=== PATIENT | male | born 1955 | race African-American/Black ===

== ENCOUNTER 2017-02-14 20:03 | Inpatient (IN) | payer MEDICARE ==
[2017-02-14] MEDS ORDERED: NITROGLYCERIN/D5W 50 MG/250 ML RTUINJ IV PRN (20:41)
[2017-02-14] MEDS ORDERED: FUROSEMIDE INJ/PF 40 MG/4 ML SDV IV ONE (20:42)
[2017-02-14 20:43] LABS: ABSOLUTE BASOPHILS # (AUTO) 0.1 10^3/uL (0.0-0.2); ABSOLUTE EOSINOPHILS # (AUTO) 0.3 10^3/uL (0.0-0.6); ABSOLUTE LYMPHOCYTES (AUTO) 2.3 10^3/uL (0.5-4.7); ABSOLUTE MONOCYTES (AUTO) 0.6 10^3/uL (0.1-1.4); ABSOLUTE NEUT (AUTO) 3.6 10^3/uL (1.7-8.2); BASOPHILS % (AUTO) 1.3 % (0-2); EOSINOPHILS % (AUTO) 4.8 % (0-6); HEMATOCRIT 40.4 % (37.9-51.0); HEMOGLOBIN 13.3 g/dL (13.5-17.0); HGB HCT DIFFERENCE -0.5; LYMPHOCYTES % (AUTO) 33.5 % (13-45); MEAN CORPUSCULAR HEMOGLOBIN 23.7 pg (27.0-33.4); MEAN CORPUSCULAR HGB CONC 32.9 g/dL (32.0-36.0); MEAN CORPUSCULAR VOLUME 72 fl (80-97); MONOCYTES % (AUTO) 8.3 % (3-13); RED CELL DISTRIBUTION WIDTH 16.4 % (11.5-14.0); SEGMENTED NEUTROPHILS % (AUTO) 52.1 % (42-78); WHITE BLOOD COUNT 6.9 10^3/uL (4.0-10.5)
--- NOTE | 2017-02-14 20:46 | ER Document Report ---
ED General - General Chief Complaint: Breathing Difficulty Stated Complaint: DIFFICULTY BREATHING Time Seen by Provider: 02/14/17 20:17 Notes: Patient is a 61-year-old male with a past medical history of hypertension, hyperlipidemia, congestive heart failure, who presents with progressively worsening shortness of breath and exertional dyspnea. Patient is a very poor historian, has difficulty relating actually how long his symptoms have been worsening. His grandson at the bedside states that he has had intermittent symptoms similar to today the past 1 month but it got worse today prompting him to request evaluation in the emergency department. Patient reports that he has required hospitalization in the past on BiPAP due to his congestive heart failure denies any recent hospitalizations for that reason. He denies any chest pain, fever, cough, sputum production, nausea or vomiting. Notes that exertion worsens his shortness of breath and rest a somewhat improve it. He does note positive orthopnea. He has noted increased lower extremity swelling that is equal. He denies any medication changes or noncompliance of medications. He does admit to some dietary indiscretions and occasionally smoking. He has not seen his primary doctor regarding today's concerns. TRAVEL OUTSIDE OF THE [place] IN LAST 30 DAYS: No - Related Data Allergies/Adverse Reactions: No Known Allergies Allergy (Unverified 02/14/17 20:43) Home Medications: Current Home Medications Finasteride [Proscar 5 mg Tablet] 5 mg PO DAILY 02/14/17 [History] Furosemide [Lasix 40 mg Tablet] 40 mg PO QAM 02/14/17 [History] Labetalol HCl 300 mg PO DAILY 02/14/17 [History] Pravastatin Sodium 40 mg PO DAILY 02/14/17 [History] Past Medical History - General Information source: Patient - Social History Smoking Status: Current Some Day Smoker Frequency of alcohol use: None Drug Abuse: None Lives with: Family Family History: Reviewed & Not Pertinent Review of Systems - Review of Systems Notes: Constitutional: Negative for fever. HENT: Negative for sore throat. Eyes: Negative for visual changes. Cardiovascular: Negative for chest pain. Respiratory: Positive for shortness of breath. Gastrointestinal: Negative for abdominal pain, vomiting or diarrhea. Genitourinary: Negative for dysuria. Musculoskeletal: Negative for back pain. Skin: Negative for rash. Neurological: Negative for headaches, weakness or numbness. 10 point ROS negative except as marked above and in HPI. Physical Exam - Vital signs Vitals: Resp Pulse Ox 28 H 100 02/14/17 20:11 02/14/17 20:11 Interpretation: Tachypneic Notes: PHYSICAL EXAMINATION: GENERAL: Moderate respiratory distress, unable to speak in complete sentences. HEAD: Atraumatic, normocephalic. EYES: Pupils equal round and reactive to light, extraocular movements intact, sclera anicteric, conjunctiva are normal. ENT: nares patent, oropharynx clear without exudates. Moderately dry mucous membranes. NECK: Normal range of motion, supple without lymphadenopathy LUNGS: Diminished at the bases bilaterally. Scattered faint rhonchi. Tachypneic with respirations between 30 and 32 breaths per minute. Unable to speak in greater than 2-3 word sentences HEART: Regular rate and rhythm without murmurs ABDOMEN: Soft, nontender, normoactive bowel sounds. No guarding, no rebound. No masses appreciated. EXTREMITIES: Normal range of motion, 3+ pitting edema that is equal and symmetric in the bilateral lower extremities NEUROLOGICAL: No focal neurological deficits. Moves all extremities spontaneously and on command. PSYCH: Normal mood, normal affect. SKIN: Warm, Dry, normal turgor, no rashes or lesions noted. Course - Re-evaluation Re-evalutation: 02/14/17 20:30 Patient presents with moderate respiratory distress breathing at 30-32 times a minute although without hypoxia and maintaining oxygen saturations of 96-99% on room air. Initial blood pressures are elevated at 188 on 124. Patient is unable to speak in more than 2-3 word sentences without gasping for breath. He has 3+ pitting edema in the bilateral lower extremities. Bedside pulmonary ultrasound does show a moderate amount of B-lines, echocardiogram does not show any evidence of pericardial effusion but does show global hypokinesis. Patient has been taking furosemide 40 mg twice daily. Given patient's work difficulty breathing, will place on BiPAP from beginning nitroglycerin infusion, provide IV Lasix, and continue to monitor very closely. 02/14/17 21:26 Patient's work of breathing is much improved on BiPAP blood pressure is trending appropriately on nitroglycerin infusion currently at 50 mg/min down to 163 on 114. However, patient is becoming somewhat more somnolent, and will obtain a venous blood gas to evaluate for the possibility of CO2 retention. Laboratories demonstrate a markedly elevated proBNP, normal troponin, mild hypernatremia. Will continue to monitor closely. 02/14/17 22:22 Patient has had improved work of breathing on BiPAP, although his pressure has increased up to 199/135 although patient is somewhat agitated and continues to resist care. He does continue to agree to stay in the hospital and family has assisted in forcing that patient will remain in the hospital. Will give a very low dose of haloperidol to help calm the patient as he does remain somewhat agitated. 02/14/17 22:41 I have discussed this case with Dr. Chen who is agreed for admission. On 70 mg/min nitroglycerin patient's blood pressure is improved down to 156 and 106. - Vital Signs Vital signs: Temp Pulse Resp BP Pulse Ox 28 H 180/122 H 100 02/14/17 20:42 02/14/17 20:12 02/14/17 20:42 - Laboratory Result Diagrams: 02/14/17 20:15 02/14/17 20:15 Laboratory results interpreted by me: 02/14/17 02/14/17 02/14/17 20:15 20:15 20:15 RBC 5.60 H Hgb 13.3 L MCV 72 L MCH 23.7 L RDW 16.4 H Sodium 147.6 H Total Bilirubin 1.7 H Direct Bilirubin 0.6 H NT-Pro-B Natriuret Pep 5170 H - Diagnostic Test Radiology reviewed: Image reviewed, Reports reviewed Radiology results interpreted by me: 02/14/17 21:27 Chest x-ray: Cardiomegaly, pulmonary vascular congestion - EKG Interpretation by Me Additional EKG results interpreted by me: 02/14/17 22:26 Sinus rhythm. Rate 98. LVH. QTC is 491. Critical Care Note - Critical Care Note Total time excluding time spent on procedures (mins): 37 Comments: Critical care time spent obtaining history from patient or surrogate, discussions with consultants, development of treatment plan with patient or surrogate, evaluation of patient's response to treatment, examination of patient , ordering and performing treatments and interventions, ordering and review of laboratory studies, re-evaluation of patient's condition, ordering and review of radiographic studies and review of old charts Discharge - Discharge Clinical Impression: Respiratory distress Pulmonary edema Qualifiers: Chronicity: acute Qualified Code(s): J81.0 - Acute pulmonary edema CHF exacerbation Qualifiers: Congestive heart failure type: unspecified congestive heart failure type Qualified Code(s): I50.9 - Heart failure, unspecified Condition: Fair Disposition: ADMITTED INPATIENT [facility] Admitted: [facility]
[2017-02-14 20:52] LABS: ALANINE AMINOTRANSFERASE 28 U/L (21-72); ALBUMIN 3.9 g/dL (3.5-5.0); ALKALINE PHOSPHATASE 82 U/L (38-126); ANION GAP 14 (5-19); ASPARTATE AMINO TRANSFERASE 23 U/L (17-59); BILIRUBIN,DIRECT 0.6 mg/dL (0.0-0.4); BILIRUBIN,TOTAL 1.7 mg/dL (0.2-1.3); BLOOD UREA NITROGEN 19 mg/dL (7-20); CALCIUM 9.3 mg/dL (8.4-10.2); CARBON DIOXIDE 28 mmol/L (22-30); CHLORIDE 106 mmol/L (98-107); GLUCOSE 83 mg/dL (75-110); POTASSIUM 3.8 mmol/L (3.6-5.0); SODIUM 147.6 mmol/L (137-145); TOTAL PROTEIN 7.1 g/dL (6.3-8.2)
[2017-02-14 21:11] LABS: TROPONIN I < 0.012 ng/mL
--- NOTE | 2017-02-14 22:08 | RADIOLOGY REPORT (SQ) ---
EXAM DESCRIPTION: CHEST SINGLE VIEW COMPLETED DATE/TIME: 02/14/2017 8:58 pm REASON FOR STUDY: sob COMPARISON: None. NUMBER OF VIEWS: One view. TECHNIQUE: Single frontal radiographic view of the chest acquired. LIMITATIONS: None. FINDINGS: LUNGS AND PLEURA: No opacities, masses or pneumothorax. No pleural effusion. MEDIASTINUM AND HILAR STRUCTURES: No masses. Contour normal. HEART AND VASCULAR STRUCTURES: Heart enlarged without failure. Normal vasculature. BONES: No acute findings. HARDWARE: None in the chest. OTHER: No other significant finding. IMPRESSION: HEART ENLARGED WITHOUT FAILURE. NO OTHER SIGNIFICANT RADIOGRAPHIC FINDING IN THE CHEST. TECHNICAL DOCUMENTATION: JOB ID: [id number] [place]-72 2010 [employer]- All Rights Reserved
[2017-02-14 22:16] LABS: VENOUS BLOOD BASE EXCESS 1.8 mmol/L; VENOUS BLOOD HCO3 27.9 mmol/L (20-32); VENOUS BLOOD PCO2 50.1 mmHg (35-63); VENOUS BLOOD PH 7.36 (7.30-7.42)
[2017-02-14] MEDS ORDERED: HALOPERIDOL LACTATE INJ 5 MG/1 ML VIAL IV ONE (22:24)
[2017-02-14] MEDS ORDERED: ACETAMINOPHEN 325 MG TABLET PO PRN (22:33)
[2017-02-14] MEDS ORDERED: MAG HYDROX/AL HYDROX/SIMETH SUSP 30 ML UDCUP PO PRN (22:33)
[2017-02-14] MEDS ORDERED: ENALAPRILAT DIHYDRATE INJ/PF 1.25 MG/1 ML SDV IV PRN (22:33)
[2017-02-14] MEDS ORDERED: MAGNESIUM HYDROXIDE SUSP 30 ML UDCUP PO PRN (22:33)
[2017-02-14] MEDS ORDERED: SPIRONOLACTONE 25 MG TABLET PO ONE (23:15)
[2017-02-15] MEDS ORDERED: LORAZEPAM INJ 2 MG/1 ML VIAL IV PRN (01:11)
[2017-02-15] MEDS: NITROGLYCERIN 2% OINTMENT 1 GM PACKET TP SCH ×4 (01:18→18:13)
[2017-02-15] MEDS: POTASSI CL 20 MEQ/50 ML RIDER 20 MEQ/50 ML RTUPB IV SCH ×2 (02:54→04:46)
[2017-02-15] MEDS: HEPARIN SOD (PORCINE) 5,000 UNIT/ML 1 ML SYRINGE SUBCUT SCH ×3 (06:33→21:29)
[2017-02-15] MEDS ORDERED: HALOPERIDOL LACTATE INJ 5 MG/1 ML VIAL IV PRN (06:42)
--- NOTE | 2017-02-15 06:42 | PDOC H&P ---
History of Present Illness Admission Date/PCP: 02/14/17 22:56 Patient complains of: Shortness of breath History of Present Illness: CURTIS HOPKINS is a 61 year old male with a past medical history of hypertension, congestive heart failure, dyslipidemia, tobacco, recreational drugs, noncompliance and dementia. He presents with progressive shortness of breath and edema over the last month. He is a poor historian and unable to provide history his daughter is at bedside stating he does not take his medication, accept dementia diagnosis or follow dietary restrictions. In the emergency room he found to have hypertensive emergency of greater than 200 systolic he started on BiPAP, IV nitroglycerin and Lasix. Later patient becomes severely delirious requiring Haldol sedation. He is referred to the hospitalist for admission. Past Medical History Cardiac Medical History: Reports: Congestive Heart Failure, Hyperlipidema, Hypertension Social History Information Source: Relative Lives with: Family Smoking Status: Current Some Day Smoker Cigars Per Day: 3 Frequency of Alcohol Use: None Hx Recreational Drug Use: No Hx Prescription Drug Abuse: No Family History Family History: CAD, Hypertension, Other - Dementia Parental Family History Reviewed: Yes Children Family History Reviewed: Yes Sibling(s) Family History Reviewed.: Yes Medication/Allergy Home Medications: Finasteride [Proscar 5 mg Tablet] 5 mg PO DAILY 02/14/17 Furosemide [Lasix 40 mg Tablet] 40 mg PO QAM 02/14/17 Labetalol HCl 300 mg PO DAILY 02/14/17 Pravastatin Sodium 40 mg PO DAILY 02/14/17 Allergies/Adverse Reactions: No Known Allergies Allergy (Unverified 02/14/17 20:43) Review of Systems ROS unobtainable: Due to mental status Physical Exam Vital Signs: Temp Pulse Resp BP Pulse Ox 98.5 F 63 20 137/95 H 100 02/15/17 03:14 02/15/17 03:14 02/15/17 04:00 02/15/17 03:14 02/15/17 04:00 Intake & Output 02/13/17 02/14/17 02/15/17 11:59 11:59 11:59 Intake Total 600 Output Total 1600 Balance -1000 Weight 98 kg General appearance: PRESENT: severe distress. ABSENT: cooperative Head exam: PRESENT: atraumatic, normocephalic Eye exam: PRESENT: conjunctiva pink, EOMI, PERRLA. ABSENT: scleral icterus Ear exam: PRESENT: normal external ear exam Mouth exam: PRESENT: moist, tongue midline Neck exam: PRESENT: JVD. ABSENT: carotid bruit Respiratory exam: PRESENT: accessory muscle use, crackles, decreased breath sounds, prolonged expiratory phas, retraction, symmetrical, tachypnea Cardiovascular exam: PRESENT: gallop, RRR. ABSENT: diastolic murmur, rubs, systolic murmur Pulses: PRESENT: normal dorsalis pedis pul Vascular exam: PRESENT: normal capillary refill GI/Abdominal exam: PRESENT: normal bowel sounds, soft. ABSENT: distended, guarding, mass, organolmegaly, rebound, tenderness Rectal exam: PRESENT: deferred Extremities exam: PRESENT: +2 edema Neurological exam: PRESENT: alert, awake, oriented to person, CN II-XII grossly intact Psychiatric exam: PRESENT: agitated Skin exam: PRESENT: dry, intact, warm. ABSENT: cyanosis, rash Results Impressions: Chest X-Ray 02/14/17 20:34 IMPRESSION: HEART ENLARGED WITHOUT FAILURE. NO OTHER SIGNIFICANT RADIOGRAPHIC FINDING IN THE CHEST. Assessment & Plan - Diagnosis (1) Hypertensive emergency Is this a current diagnosis for this admission?: Yes Plan: IMCU admission, titrate IV nitroglycerin to transdermal, add p.o. Aldactone, Vasotec, Lasix and hydralazine (2) History of substance abuse Is this a current diagnosis for this admission?: Yes Plan: Avoid beta-rocco pending urine drug screen. (3) CHF exacerbation Qualifiers: Congestive heart failure type: unspecified congestive heart failure type Qualified Code(s): I50.9 - Heart failure, unspecified Is this a current diagnosis for this admission?: Yes Plan: Unknown ejection fraction echocardiogram ordered. Continue BiPAP and optimization of blood pressure follow-up urine drug screen, cardiac enzyme, CBC and chemistry. (4) Delirium Is this a current diagnosis for this admission?: Yes Plan: History of dementia likely vascular complicated by the above. As needed Haldol (5) Tobacco dependency Is this a current diagnosis for this admission?: Yes Plan: Tobacco Dependence patient received tobacco cessation counseling and offered nicotine replacement options - Time Time Spent: 50 to 70 Minutes - Inpatient Certification Medical Necessity: Need Close Monitoring Due to Risk of Patient Decompensation
[2017-02-15 06:54] LABS: ABSOLUTE BASOPHILS # (AUTO) 0.1 10^3/uL (0.0-0.2); ABSOLUTE EOSINOPHILS # (AUTO) 0.3 10^3/uL (0.0-0.6); ABSOLUTE LYMPHOCYTES (AUTO) 1.9 10^3/uL (0.5-4.7); ABSOLUTE MONOCYTES (AUTO) 0.4 10^3/uL (0.1-1.4); ABSOLUTE NEUT (AUTO) 2.4 10^3/uL (1.7-8.2); BASOPHILS % (AUTO) 1.7 % (0-2); EOSINOPHILS % (AUTO) 6.1 % (0-6); HEMATOCRIT 37.9 % (37.9-51.0); HEMOGLOBIN 12.1 g/dL (13.5-17.0); HGB HCT DIFFERENCE -1.6; LYMPHOCYTES % (AUTO) 36.8 % (13-45); MEAN CORPUSCULAR HEMOGLOBIN 22.9 pg (27.0-33.4); MEAN CORPUSCULAR HGB CONC 31.8 g/dL (32.0-36.0); MEAN CORPUSCULAR VOLUME 72 fl (80-97); MONOCYTES % (AUTO) 8.3 % (3-13); RED BLOOD COUNT 5.26 10^6/uL (4.35-5.55); RED CELL DISTRIBUTION WIDTH 16.3 % (11.5-14.0); SEGMENTED NEUTROPHILS % (AUTO) 47.1 % (42-78); WHITE BLOOD COUNT 5.2 10^3/uL (4.0-10.5)
[2017-02-15 07:12] LABS: ANION GAP 12 (5-19); BLOOD UREA NITROGEN 15 mg/dL (7-20); CARBON DIOXIDE 29 mmol/L (22-30); CHLORIDE 106 mmol/L (98-107); CREATINE KINASE 61 U/L (55-170); CREATININE RESULT 1.05 mg/dL (0.52-1.25); GLUCOSE 74 mg/dL (75-110); SODIUM 147.4 mmol/L (137-145)
[2017-02-15 07:24] LABS: CREATINE KINASE MB 0.91 ng/mL (<4.55)
[2017-02-15 07:34] LABS: TROPONIN I < 0.012 ng/mL
[2017-02-15] MEDS ORDERED: DILTIAZEM HCL INJ 25 MG/5 ML VIAL IV ONE (09:00)
[2017-02-15] MEDS: FUROSEMIDE INJ/PF 40 MG/4 ML SDV IV SCH ×2 (09:23→21:29)
[2017-02-15] MEDS: SPIRONOLACTONE 25 MG TABLET PO SCH ×2 (09:24→18:13)
[2017-02-15] MEDS: DOCUSATE SODIUM 100 MG CAPSULE PO SCH (09:24)
[2017-02-15] MEDS: POTASSIUM CHLORIDE 10 MEQ TABLET.SA PO SCH ×2 (09:24→21:29)
[2017-02-15] MEDS: ASPIRIN 81 MG TABLET, ENT COATED PO SCH (09:24)
[2017-02-15] MEDS: FINASTERIDE 5 MG TABLET PO SCH (09:24)
[2017-02-15] MEDS ORDERED: (PENDING PHARMACY ID) (Pravastatin Sodium [Pravastatin Sodium] 40 MG) PO SCH (10:00)
[2017-02-15 10:22] LABS: APPEARANCE,URINE CLEAR; BILIRUBIN,URINE NEGATIVE (NEGATIVE); GLUCOSE, URINE NEGATIVE (NEGATIVE); KETONES,URINE TRACE mg/dL (NEGATIVE); LEUKOCYTE ESTERASE,URINE NEGATIVE (NEGATIVE); NITRITE,URINE NEGATIVE (NEGATIVE); PROTEIN,URINE NEGATIVE (NEGATIVE); URINE SPECIFIC GRAVITY 1.013
[2017-02-15 10:39] LABS: URINE BARBITURATES SCREEN NEGATIVE; URINE METHADONE SCREEN NEGATIVE; URINE OPIATES LOW NEGATIVE; URINE PHENCYCLIDINE SCREEN NEGATIVE
[2017-02-15] MEDS: LABETALOL HCL 200 MG TABLET PO SCH (12:37)
--- NOTE | 2017-02-15 13:46 | PDOC PROGRESS REPORT ---
Subjective Progress Note for:: 02/15/17 Subjective:: Patient is seen resting in bed comfortably on room air. He reports that he is feeling much better this morning and denies headache, dizziness, chest pain, palpitation, dyspnea, orthopnea and cough. He has no questions or concerns today other than expected timeframe for discharge. Physical Exam Vital Signs: Temp Pulse Resp BP Pulse Ox 98.3 F 78 18 155/91 H 100 02/15/17 11:20 02/15/17 11:20 02/15/17 11:20 02/15/17 11:20 02/15/17 11:20 Intake & Output 02/14/17 02/15/17 02/16/17 06:59 06:59 06:59 Intake Total 600 Output Total 1600 Balance -1000 Weight 98 kg Results Laboratory Results: 02/15/17 06:35 02/15/17 06:35 02/15/17 02/15/17 02/15/17 06:35 06:35 06:35 WBC 5.2 RBC 5.26 Hgb 12.1 L Hct 37.9 MCV 72 L MCH 22.9 L MCHC 31.8 L RDW 16.3 H Plt Count 153 Seg Neutrophils % 47.1 Lymphocytes % 36.8 Monocytes % 8.3 Eosinophils % 6.1 H Basophils % 1.7 Absolute Neutrophils 2.4 Absolute Lymphocytes 1.9 Absolute Monocytes 0.4 Absolute Eosinophils 0.3 Absolute Basophils 0.1 Sodium 147.4 H Potassium 4.0 Chloride 106 Carbon Dioxide 29 Anion Gap 12 BUN 15 Creatinine 1.05 Est GFR ( Amer) > 60 Est GFR (Non-Af Amer) > 60 Glucose 74 L Calcium 9.0 Magnesium 1.7 Urine Color Urine Appearance Urine pH Ur Specific Fouke Urine Protein Urine Glucose (UA) Urine Ketones Urine Blood Urine Nitrite Ur Leukocyte Esterase Urine WBC (Auto) Urine RBC (Auto) 02/15/17 10:00 WBC RBC Hgb Hct MCV MCH MCHC RDW Plt Count Seg Neutrophils % Lymphocytes % Monocytes % Eosinophils % Basophils % Absolute Neutrophils Absolute Lymphocytes Absolute Monocytes Absolute Eosinophils Absolute Basophils Sodium Potassium Chloride Carbon Dioxide Anion Gap BUN Creatinine Est GFR ( Amer) Est GFR (Non-Af Amer) Glucose Calcium Magnesium Urine Color NU Urine Appearance CLEAR Urine pH 6.0 Ur Specific Fouke 1.013 Urine Protein NEGATIVE Urine Glucose (UA) NEGATIVE Urine Ketones TRACE H Urine Blood NEGATIVE Urine Nitrite NEGATIVE Ur Leukocyte Esterase NEGATIVE Urine WBC (Auto) 1 Urine RBC (Auto) 1 02/15/17 02/15/17 06:35 06:35 Creatine Kinase 61 CK-MB (CK-2) 0.91 Troponin I < 0.012 Impressions: Chest X-Ray 02/14/17 20:34 IMPRESSION: HEART ENLARGED WITHOUT FAILURE. NO OTHER SIGNIFICANT RADIOGRAPHIC FINDING IN THE CHEST. Assessment & Plan - Diagnosis (1) CHF exacerbation Qualifiers: Congestive heart failure type: unspecified congestive heart failure type Qualified Code(s): I50.9 - Heart failure, unspecified Is this a current diagnosis for this admission?: Yes Plan: Patient presented with dyspnea on exertion and progressively worsening edema over the last month. He is a poor historian and admittedly noncompliant with his home medications. Upon presentation, he was noted to have severely elevated blood pressures, crackles bilaterally, and bilateral pitting edema. Pro-BNP elevated 5170. His blood pressures were aggressively managed with Nitro drip, IV lasix and BiPAP. He has been successfully transitioned to nitro paste and p.o. labetalol. We will continue p.o. labetalol, Nitropaste, spironolactone, and furosemide. BiPAP nightly and as needed. (2) Delirium Is this a current diagnosis for this admission?: Yes Plan: Patient has a history of vascular dementia that was acutely worsened secondary to CHF exacerbation. Patient demonstrates improved mentation this morning. Will have Haldol as needed for agitation. (3) History of substance abuse Is this a current diagnosis for this admission?: Yes Plan: UDS negative, no evidence of withdrawal. Will monitor. (4) Hypertensive emergency Is this a current diagnosis for this admission?: Yes Plan: Resolved. Continue plan as above. (5) Tobacco dependency Is this a current diagnosis for this admission?: Yes Plan: Nicotine replacement therapy offered. - Time Time Spent with patient: 25-34 minutes Medications reviewed and adjusted accordingly: Yes Anticipated discharge: Home - Inpatient Certification Based on my medical assessment, after consideration of the patient's comorbidities, presenting symptoms, or acuity I expect that the services needed warrant INPATIENT care.: Yes I certify that my determination is in accordance with my understanding of Medicare's requirements for reasonable and necessary INPATIENT services [42 CFR 412.3e].: Yes Medical Necessity: Need Close Monitoring Due to Risk of Patient Decompensation, Need For Continuous Telemetry Monitoring
[2017-02-15] MEDS ORDERED: DILTIAZEM HCL 30 MG TABLET PO SCH (14:00)
--- NOTE | 2017-02-15 15:42 | EKG REPORT ---
SEVERITY:- ABNORMAL ECG - SINUS ARRHYTHMIA, RATE 58-74 PROBABLE LEFT ATRIAL ABNORMALITY BORDERLINE LEFT AXIS DEVIATION NONSPECIFIC T ABNORMALITIES, ANT-LAT LEADS PROLONGED QT INTERVAL : Confirmed by: Mellisa Landers MD 15-Feb-2017 15:41:49
--- NOTE | 2017-02-15 15:42 | EKG REPORT ---
SEVERITY:- ABNORMAL ECG - SINUS RHYTHM LEFT ATRIAL ABNORMALITY LEFT AXIS DEVIATION BORDERLINE R WAVE PROGRESSION, ANTERIOR LEADS NONSPECIFIC T ABNORMALITIES, LATERAL LEADS BORDERLINE PROLONGED QT INTERVAL : Confirmed by: Mellisa Landers MD 15-Feb-2017 15:42:07
[2017-02-15] MEDS: ATORVASTATIN CALCIUM 10 MG TABLET PO SCH (21:29)
[2017-02-16] MEDS: NITROGLYCERIN 2% OINTMENT 1 GM PACKET TP SCH ×4 (00:08→18:14)
[2017-02-16] MEDS: HEPARIN SOD (PORCINE) 5,000 UNIT/ML 1 ML SYRINGE SUBCUT SCH ×3 (05:08→23:41)
[2017-02-16 05:35] LABS: ANION GAP 11 (5-19); BLOOD UREA NITROGEN 18 mg/dL (7-20); CALCIUM 8.9 mg/dL (8.4-10.2); CARBON DIOXIDE 29 mmol/L (22-30); CHLORIDE 104 mmol/L (98-107); GLUCOSE 84 mg/dL (75-110); POTASSIUM 3.8 mmol/L (3.6-5.0); SODIUM 144.3 mmol/L (137-145)
[2017-02-16] MEDS ORDERED: LABETALOL HCL 300 MG PO SCH (10:00)
[2017-02-16] MEDS: SPIRONOLACTONE 25 MG TABLET PO SCH ×2 (10:05→18:14)
[2017-02-16] MEDS: ASPIRIN 81 MG TABLET, ENT COATED PO SCH (10:05)
[2017-02-16] MEDS: FINASTERIDE 5 MG TABLET PO SCH (10:06)
[2017-02-16] MEDS: POTASSIUM CHLORIDE 10 MEQ TABLET.SA PO SCH ×2 (10:06→23:13)
[2017-02-16] MEDS: FUROSEMIDE INJ/PF 40 MG/4 ML SDV IV SCH (10:06)
[2017-02-16] MEDS: DOCUSATE SODIUM 100 MG CAPSULE PO SCH (10:06)
[2017-02-16] MEDS: LABETALOL HCL 200 MG TABLET PO SCH (13:31)
--- NOTE | 2017-02-16 13:54 | PDOC PROGRESS REPORT ---
Subjective Progress Note for:: 02/16/17 Subjective:: Patient is seen sitting up to the edge of the bed having just finished breakfast. He reports that he was on room air overnight, he has previously been recommended to use his CPAP for TRE but does not have one at home. He states that he is feeling fine and denies headache, dizziness, chest pain, palpitation, dyspnea, orthopnea and cough. He reports that he feels ready to be discharged to home but is concerned that his family members may have traveled to [place] for Thanksgiving without him and that he would not have anybody to give him a ride or stay with him overnight. Per nursing the patient did become confused and wandered several times overnight. He was easily redirected back to bed but certainly disoriented with regard to time and place. He has no questions or concerns today. Physical Exam Vital Signs: Temp Pulse Resp BP Pulse Ox 97.6 F 79 18 153/97 H 100 02/16/17 13:12 02/16/17 13:12 02/16/17 13:12 02/16/17 13:12 02/16/17 13:12 Intake & Output 02/15/17 02/16/17 02/17/17 06:59 06:59 06:59 Intake Total 600 1225 Output Total 1600 3100 Balance -1000 -1875 Weight 98 kg 95.2 kg General appearance: PRESENT: no acute distress, well-developed, well-nourished, other - Overweight Head exam: PRESENT: atraumatic, normocephalic Eye exam: PRESENT: conjunctiva pink, EOMI, PERRLA. ABSENT: scleral icterus Ear exam: PRESENT: normal external ear exam Mouth exam: PRESENT: moist, tongue midline Neck exam: ABSENT: carotid bruit, JVD, lymphadenopathy, thyromegaly Respiratory exam: PRESENT: clear to auscultation seng, symmetrical, unlabored. ABSENT: rales, rhonchi, wheezes Cardiovascular exam: PRESENT: RRR, +S1, +S2. ABSENT: diastolic murmur, rubs, systolic murmur Pulses: PRESENT: normal dorsalis pedis pul Vascular exam: PRESENT: normal capillary refill GI/Abdominal exam: PRESENT: normal bowel sounds, soft. ABSENT: distended, guarding, mass, organolmegaly, rebound, tenderness Rectal exam: PRESENT: deferred Extremities exam: PRESENT: full ROM, pedal edema, +1 edema - RLE; improved from yesterday, +2 edema - LLE; improved from yesterday. ABSENT: calf tenderness, clubbing Neurological exam: PRESENT: alert, awake, oriented to person, oriented to place , oriented to time, oriented to situation, CN II-XII grossly intact. ABSENT: motor sensory deficit Psychiatric exam: PRESENT: appropriate affect, normal mood. ABSENT: homicidal ideation, suicidal ideation Skin exam: PRESENT: dry, intact, warm. ABSENT: cyanosis, rash Results Laboratory Results: 02/15/17 06:35 02/16/17 04:55 02/16/17 04:55 Sodium 144.3 Potassium 3.8 Chloride 104 Carbon Dioxide 29 Anion Gap 11 BUN 18 Creatinine 1.00 Est GFR ( Amer) > 60 Est GFR (Non-Af Amer) > 60 Glucose 84 Calcium 8.9 02/15/17 02/15/17 06:35 06:35 Creatine Kinase 61 CK-MB (CK-2) 0.91 Troponin I < 0.012 Impressions: Chest X-Ray 02/14/17 20:34 IMPRESSION: HEART ENLARGED WITHOUT FAILURE. NO OTHER SIGNIFICANT RADIOGRAPHIC FINDING IN THE CHEST. Assessment & Plan - Diagnosis (1) CHF exacerbation Qualifiers: Congestive heart failure type: unspecified congestive heart failure type Qualified Code(s): I50.9 - Heart failure, unspecified Is this a current diagnosis for this admission?: Yes Plan: Resolved. Patient presented with dyspnea on exertion and progressively worsening edema over the last month. He is a poor historian and admittedly noncompliant with his home medications. Upon presentation, he was noted to have severely elevated blood pressures, crackles bilaterally, and bilateral pitting edema. Pro-BNP elevated 5170. His blood pressures were aggressively managed with Nitro drip, IV lasix and BiPAP. He has been successfully transitioned to nitro paste and p.o. labetalol. We will continue p.o. labetalol, Nitropaste, spironolactone, and furosemide. BiPAP nightly and as needed. At this time patient is stable for discharge. (2) Dementia Is this a current diagnosis for this admission?: Yes Plan: Patient with history of dementia per family, likely vascular, although patient denies. His mentation was acutely worsened during CHF exacerbation and did require treatment with Haldol 1 shortly after admission. Patient is currently alert and oriented 4. Overnight, he did experience some increased confusion with regard to time and place, and wandered several times. He was easily directed by nursing staff back to his room/bed. Although patient is medically stable for discharge, given his underlying dementia and wander risk, he should be discharged into the care of family members. The patient and staff believe that the family has traveled out of state for the . I have asked discharge planning to help get in contact with family as the only number I have goes directly to a voicemail box that is full. (3) History of substance abuse Is this a current diagnosis for this admission?: Yes Plan: UDS negative, no evidence of withdrawal. Will monitor. (4) Hypertensive emergency Is this a current diagnosis for this admission?: Yes Plan: Resolved. Continue plan as above. (5) Tobacco dependency Is this a current diagnosis for this admission?: Yes Plan: Nicotine replacement therapy offered. (6) Delirium Is this a current diagnosis for this admission?: Yes Plan: Resolved. Patient has a history of vascular dementia that was acutely worsened secondary to CHF exacerbation. Patient demonstrates improved mentation this morning. Will have Haldol as needed for agitation. - Time Time Spent with patient: 15-24 minutes Medications reviewed and adjusted accordingly: Yes Anticipated discharge: Home - To care of family Within: within 24 hours
[2017-02-16] MEDS: FUROSEMIDE 40 MG TABLET PO SCH (18:13)
[2017-02-16] MEDS: ATORVASTATIN CALCIUM 10 MG TABLET PO SCH (23:44)
[2017-02-17] MEDS: NITROGLYCERIN 2% OINTMENT 1 GM PACKET TP SCH ×3 (01:08→11:11)
[2017-02-17] MEDS: HEPARIN SOD (PORCINE) 5,000 UNIT/ML 1 ML SYRINGE SUBCUT SCH ×2 (06:03→14:44)
--- NOTE | 2017-02-17 10:27 | PDOC DISCHARGE SUMMARY ---
General - Admit/Disc Date/PCP Admission Date/Primary Care Provider: 02/14/17 22:56 Discharge Date: 02/17/17 - Discharge Diagnosis (1) CHF exacerbation Is this a current diagnosis for this admission?: Yes Summary: Patient presented with dyspnea on exertion and progressively worsening edema over the last month. He is a poor historian and admittedly noncompliant with his home medications. He was noted to have severely elevated blood pressures, crackles bilaterally, and bilateral pitting edema with a proBNP elevated to 5170. His blood pressures were aggressively managed with nitro drip, IV Lasix, and BiPAP. He has been successfully transitioned to nitro paste and p.o. labetalol. His lung sounds have cleared and he is now maintaining oxygenation saturations on room air. He completed an ambulatory room air testing yesterday and maintain oxygen saturations greater than 95% without a significant elevation in his heart rate. He will be discharged on p.o. labetalol, spironolactone, and furosemide with Nitropaste. It is recommended that he follow-up with his primary care provider within 1 week. (2) Dementia Is this a current diagnosis for this admission?: Yes Summary: The patient has a history of dementia per family, likely vascular, although patient denies. His mentation was acutely worsened during the CHF exacerbation and did require treatment with Haldol 1 shortly after admission. His delirium improved rapidly with correction of his hypertension respiratory status. Currently the patient is alert and oriented 4, he is forgetful, and does have increased confusion and wandering tendencies at night. At time of discharge, patient is stable to be discharged to the care of family members. (3) History of substance abuse Is this a current diagnosis for this admission?: Yes Summary: UDS was negative and no evidence of withdrawal was noted during admission. (4) Hypertensive emergency Is this a current diagnosis for this admission?: Yes Summary: Resolved; hypertension was aggressively managed with nitro drip, furosemide, and labetalol. Please see above. (5) Tobacco dependency Is this a current diagnosis for this admission?: Yes (6) Delirium Is this a current diagnosis for this admission?: Yes Summary: Resolved. The patient has a history of vascular dementia that was acutely worsened secondary to CHF exacerbation. At this time he is alert and oriented 4 andpresumed to have returned to his baseline mentation. - Additional Information Discharge Diet: Cardiac Discharge Activity: Activity As Tolerated, Balance Activity w/Rest, Slowly Increase Activity Home Medications: Aspirin [Ecotrin 81 mg EC Tablet] 81 mg PO DAILY tabec 02/17/17 Atorvastatin Calcium [Lipitor 10 mg Tablet] 10 mg PO QHS #30 tablet 02/17/17 Finasteride [Proscar 5 mg Tablet] 5 mg PO DAILY tablet 02/17/17 Labetalol HCl [Normodyne 200 mg Tablet] 300 mg PO DAILY@1200 #30 tablet Nitroglycerin [Nitrol 2% Ointment 1Gm Packet] 1 gm TP Q6 #30 oint..gm. 02/17/17 Spironolactone [Aldactone 25 mg Tablet] 25 mg PO BID #30 tablet 02/17/17 History of Present Illness History of Present Illness: Per H&P by Dr. Chen: CURTIS HOPKINS is a 61 year old male with a past medical history of hypertension, congestive heart failure, dyslipidemia, tobacco , recreational drugs, noncompliance and dementia. He presents with progressive shortness of breath and edema over the last month. He is a poor historian and is unable to provide history his daughter is at bedside stating he does not take his medications, except dementia diagnosis, or follow dietary restrictions. In the emergency room he was found to have hypertensive emergency of greater than 200 systolic he is started on BiPAP, IV nitroglycerin and Lasix. Later patient become severely delirious requiring Haldol sedation. He is referred to the hospitalist for admission. Physical Exam Vital Signs: Temp Pulse Resp BP Pulse Ox 97.6 F 69 24 H 150/98 H 100 02/17/17 08:00 02/17/17 08:00 02/17/17 08:00 02/17/17 08:00 02/17/17 08:00 Intake & Output 02/16/17 02/17/17 02/18/17 06:59 06:59 06:59 Intake Total 1225 1460 Output Total 3100 875 Balance -1875 585 Weight 95.2 kg 99.3 kg General appearance: PRESENT: no acute distress, obese, well-developed, well- nourished Head exam: PRESENT: atraumatic, normocephalic Eye exam: PRESENT: conjunctiva pink, EOMI, PERRLA. ABSENT: scleral icterus Ear exam: PRESENT: normal external ear exam Mouth exam: PRESENT: moist, tongue midline Neck exam: ABSENT: carotid bruit, JVD, lymphadenopathy, thyromegaly Respiratory exam: PRESENT: clear to auscultation seng, symmetrical, unlabored. ABSENT: rales, rhonchi, wheezes Cardiovascular exam: PRESENT: RRR. ABSENT: diastolic murmur, rubs, systolic murmur Pulses: PRESENT: normal dorsalis pedis pul Vascular exam: PRESENT: normal capillary refill GI/Abdominal exam: PRESENT: normal bowel sounds, soft. ABSENT: distended, guarding, mass, organolmegaly, rebound, tenderness Rectal exam: PRESENT: deferred Extremities exam: PRESENT: full ROM, +1 edema. ABSENT: calf tenderness, clubbing, pedal edema Neurological exam: PRESENT: alert, awake, oriented to person, oriented to place , oriented to time, oriented to situation, CN II-XII grossly intact. ABSENT: motor sensory deficit Psychiatric exam: PRESENT: appropriate affect, normal mood. ABSENT: homicidal ideation, suicidal ideation Skin exam: PRESENT: dry, intact, warm. ABSENT: cyanosis, rash Results Laboratory Results: 02/15/17 06:35 02/16/17 04:55 02/15/17 02/15/17 06:35 06:35 Creatine Kinase 61 CK-MB (CK-2) 0.91 Troponin I < 0.012 Impressions: Chest X-Ray 02/14/17 20:34 IMPRESSION: HEART ENLARGED WITHOUT FAILURE. NO OTHER SIGNIFICANT RADIOGRAPHIC FINDING IN THE CHEST. Qualifiers PATEINT BEING DISCHARGED WITH ANY OF THE FOLLOWING DIAGNOSIS?: Heart Failure
[2017-02-17] MEDS: POTASSIUM CHLORIDE 10 MEQ TABLET.SA PO SCH (11:08)
[2017-02-17] MEDS: FUROSEMIDE 40 MG TABLET PO SCH (11:09)
[2017-02-17] MEDS: ASPIRIN 81 MG TABLET, ENT COATED PO SCH (11:10)
[2017-02-17] MEDS: SPIRONOLACTONE 25 MG TABLET PO SCH (11:10)
[2017-02-17] MEDS: DOCUSATE SODIUM 100 MG CAPSULE PO SCH (11:10)
[2017-02-17] MEDS: FINASTERIDE 5 MG TABLET PO SCH (11:10)
[2017-02-17] MEDS: LABETALOL HCL 200 MG TABLET PO SCH (11:10)
[2017-02-17 14:01] VITALS: BP 140/85
== END 2017-02-17 15:19 | disposition home or self-care (01) | DRG 304 ==
LOC: ER 20:03 → EH 22:56 → 3W 02-15 03:08
PROVIDERS: ADMIT Internal Medicine; ATTEND Internal Medicine
PROC: 5A09457 Assistance with Respiratory Ventilation, 24-96 Consecutive Hours, Continuous Positive Airway Pressure (ICD-10-PCS; principal; 2017-02-14)
DX: I16.1 Hypertensive emergency (principal); I50.33 Acute on chronic diastolic (congestive) heart failure; I11.0 Hypertensive heart disease with heart failure; F01.50 Vascular dementia, unspecified severity, without behavioral disturbance, psychotic disturbance, mood disturbance, and anxiety; R41.0 Disorientation, unspecified; E78.5 Hyperlipidemia, unspecified; Z91.14 Patient's other noncompliance with medication regimen; Z79.82 Long term (current) use of aspirin; Z79.899 Other long term (current) drug therapy; F17.210 Nicotine dependence, cigarettes, uncomplicated
CPT/HCPCS: 36415; 71010; 80048; 80053; 80307; 81001; 82550; 82553; 82803; 83735; 83880; 84484; 85025; 93005; 93010; 94660; 96365; 96366; 96375; 99291; J1630; J1644; J1940; J3480; J3490